=== PATIENT | male | born 1970 | race Two or more races ===

== ENCOUNTER 2023-07-21 15:43 | Emergency (ER) | payer MEDICAID, OTHER ==
[~2023-07-21] VITALS: Ht 177.8 cm; Wt 71.0 kg
[2023-07-21] MEDS: HYDROcodone-ACET 10/325MG TAB PO ONE (16:58)
[2023-07-21] MEDS: SULFAMETHOX W/TRIMETH(800/160MG) DS TAB PO ONE (16:58)
[2023-07-21] MEDS: DexAMETHasone SOD PHOS 10MG/1ML VIAL INJ IM ONE (16:59)
[2023-07-21] MEDS: TETANUS-DIPTH-ACEL PERTUSSIS 0.5ML SYR Tdap IM ONE (17:00)
[2023-07-21 17:01] VITALS: PULSE 73; RESP 16; O2SAT 98
[2023-07-21 17:07] LABS: Basophils # (auto) 0 10 ^3/uL (0-0.2); Basophils % (auto) 0.6 % (0.0-2.0); Eosinophils # (auto) 0.2 10 ^3/uL (0-0.8); Eosinophils % (auto) 2.8 % (0.0-7.0); Hematocrit 38.2 % (41.0-53.0); Hemoglobin 12.9 g/dL (13.5-17.5); Lymphocytes # (auto) 1.4 10 ^3/uL (0.4-5.4); Lymphocytes % (auto) 21.6 % (10.0-50.0); Mean Corpuscular Hemoglobin 29.9 pg (28.0-32.0); Mean Corpuscular Hgb Conc. 33.7 g/dL (32.0-36.0); Mean Corpuscular Volume 88.7 fL (80.0-100.0); Monocytes # (auto) 0.5 10 ^3/uL (0-1.3); Monocytes % (auto) 8.3 % (0.0-12.0); Neutrophils # (auto) 4.3 10 ^3/uL (1.6-8.6); Neutrophils % (auto) 66.7 % (37.0-80.0); Nucleated Red Blood Cells % 0.1 %; Red Blood Cells 4.31 10^6/uL (4.5-5.90); Red Cell Distribution Width 13.1 % (11.8-14.3); White Blood Cell 6.4 10^3/uL (4.4-10.8)
[2023-07-21 17:28] LABS: Alanine Aminotransferase 13 U/L (7-40); Albumin 4.3 g/dL (3.2-4.8); Alkaline Phosphatase 161 U/L (46-116); Anion Gap 5 (5-15); Aspartate Aminotransferase < 8 U/L (13-40); BUN/Creatinine Ratio 15.4 (10.0-20.0); Bilirubin, Total 0.4 mg/dL (0.2-1.0); Blood Urea Nitrogen 14 mg/dL (9-23); Calcium 9.7 mg/dL (8.5-10.1); Carbon Dioxide 28 mmol/L (20-30); Chloride 103 mmol/L (98-107); Glucose 329 mg/dL (74-106); Potassium 4.8 mmol/L (3.5-5.1); Sodium 136 mmol/L (136-145); Total Protein 7.2 g/dL (5.7-8.2)
[2023-07-21] MEDS ORDERED: IBUP-1455 PO (17:57)
[2023-07-21] MEDS ORDERED: BACIOIN15 TOP (17:57)
[2023-07-21] MEDS ORDERED: ACET500T58 PO (17:57)
[2023-07-21] MEDS ORDERED: BACDST PO (17:57)
[2023-07-21 19:26] VITALS: BP 125/75; PULSE 67; RESP 20; TEMP 97.6; O2SAT 99
[2023-07-21] MEDS: NEOMYCIN-BACITRACIN-POLYM UNITDOSE PKG TOP OINT TOP ONE (19:40)
== END 2023-07-21 19:30 | disposition home or self-care (01) ==
LOC: ER 15:43
DX: L03.115 Cellulitis of right lower limb (principal); E11.9 Type 2 diabetes mellitus without complications
CPT/HCPCS: 36415; 80053; 82962; 83605; 83880; 85025; 90471; 90715; 96372; 99284; J1100